=== PATIENT | female | born 1955 | race Caucasian/White ===

== ENCOUNTER 2023-06-25 07:48 | Emergency (ER) | payer OTHER, SELFPAY ==
[2023-06-25 07:54] VITALS: BP 129/70; BMI 24.5
[2023-06-25 08:07] LABS: % Basophils 0.4 % (0-2); % Eosinophils 1.1 % (0-6); % Immature Granulocytes 0.2 % (0-0.5); % Lymphocytes 40.4 % (20.5-51.1); % Monocytes 8.1 % (1.7-9.3); % Neutrophils 49.8 % (42.2-75.2); Absolute Eosinophils 0.1 10^3/uL (0-0.7); Absolute Lymphocytes 1.9 10^3/uL (1.2-3.4); Absolute Monocytes 0.4 10^3/uL (0.1-0.6); Absolute Neutrophils 2.3 10^3/uL (1.4-6.5); Hematocrit 39.9 % (37.0-47.0); Hemoglobin 13.3 g/dL (12.0-16.0); Mean Corp Hgb Conc. 33.3 g/dL (33.0-37.0); Mean Corpuscular Hgb 29.9 pg (27.0-31.0); Mean Corpuscular Volume 89.7 fL (81.0-99.0); Mean Platelet Volume 9.7 fL (7.4-10.4); Nucleated Red Blood Cells % 0 %; Platelet Count 200 10^3/uL (130-400); Red Blood Cell Count 4.45 10^6/uL (4.20-5.40); Red Cell Dist. Width 12.8 % (11.5-14.5); White Blood Cell Count 4.6 10^3/uL (4.8-10.8)
[2023-06-25 08:20] LABS: ALT (SGPT) 24 U/L (0-35); AST (SGOT) 31 U/L (14-36); Albumin 4.5 g/dl (3.5-5.0); Alkaline Phosphatase 52 U/L (38-126); Blood Urea Nitrogen 15 mg/dl (7-17); Calcium 9.4 mg/dl (8.4-10.2); Carbon Dioxide 28 mmol/L (22-30); Chloride 105 mmol/L (98-107); Estimated Creatinine Clearance 71 ml/min; Glucose 105 mg/dl (70-99); Sodium 136 mmol/L (135-145); Total Bilirubin 1.1 mg/dl (0.2-1.3); Total Protein 7.1 g/dl (6.3-8.2); eGFR > 60.00
[2023-06-25 08:30] LABS: Troponin I < 0.012 ng/ml
[2023-06-25 09:00] VITALS: BP 114/81
[2023-06-25 10:00] VITALS: BP 122/68
--- NOTE | 2023-06-25 10:22 | ED.GENMED ---
History of Present Illness
General
Chief Complaint: Chest Pain
Source: patient
Exam Limitations: none
Time Seen by Provider: 06/25/23 08:28
Nursing documentation reviewed up to this point in time: agreed with except (Triage note mentions some fluttering in her chest-denies to me)
Travel History
Have you had any contact with someone who has COVID-19?: No
Do you have any symptoms of coronavirus? Fever > 100 degrees, chills, cough, shortness of breath, sore throat, loss of taste or smell, muscle aches, or headache?: No
History of Present Illness
History of Present Illness:
68-year-old female with a history of hyperlipidemia presents to the emergency room for evaluation of chest pain. Patient reports symptoms have been intermittent since this morning that she says she woke up around 6 AM and she had discomfort in her
lower chest. She says she has had associated nausea. She says symptoms have been intermittent since onset. She says she has associated clamminess. She denies any vomiting. She says she was in her normal state of health last night although she
does note that her sister had recent CABG and for this reason patient has been very stressed recently. She denies any shortness of breath. She denies any recent illness including fever, cough, chills, URI symptoms. She denies having had similar
symptoms in the past. She denies any personal history of cardiac issues but says she has a family history both and her sister recently as above and also in her mother�she says mother had CABG in her 50s.
Review of Systems
Review of Systems
All Other Systems: ROS reviewed and negative except as documented in HPI and ROS
Constitutional: Denies fever or chills
EENT: Denies sore throat or runny nose
Respiratory: Denies cough or trouble breathing
Cardiac: Reports chest pain; Denies diaphoresis, palpitations or syncope
ABD/GI: Reports nausea; Denies abdominal pain, vomiting or diarrhea
: Denies flank pain
Musculoskeletal: Denies neck pain or back pain
Neurological: Denies headache, weakness or numbness
Phy Exam
Physical Exam
Physical Exam:
General: Awake, alert, oriented x3; no acute distress
Head: Normocephalic, atraumatic
Eyes: Conjunctiva normal, sclera anicteric
Throat: Airway intact, handling secretions
Neck: Trachea midline, supple without meningismus
Lungs: Clear to auscultation bilaterally, no wheezing, rales, rhonchi
Heart: Regular rate and rhythm, no murmurs, gallops, or rubs
Abd: Soft, non distended, nontender
Neuro: Cranial nerves grossly intact, speech fluid
Skin: no rash
Extremities: No edema in extremities, equal pulses in all extremities
Scores
Heart Failure Risk
Heart Failure Risk Score: Not Applicable
Heart Score for Chest Pain Patients
STEMI patient?: No
History: Slightly or Non-Suspicious
ECG: Normal
Age: >/= 65 years
Risk Factors: 1 or 2 Risk Factors
Troponin: </= Normal Limit
Heart Score for Chest Pain Patients: 3
Heart Score Risk: 2.5% MACE over next 6 weeks
Withdrawal Assessment of Alcohol
Withdrawal Assessment Completed?: Not applicable
Course
Orders/Labs/Results
Orders:
Orders
06/25/23 07:53
Electrocardiogram (*1) Urgent
Reason for Study: Chest Pain
EKG- Treatment ONCE
06/25/23 07:55
Complete Blood Count/With Diff Urgent
Comprehensive Metabolic Panel Urgent
Lipase Urgent
Comment: ADD ON
Troponin I Urgent
06/25/23 08:32
CR Chest - 2 Views Urgent
Comment:
Reason For Exam: chest pain
06/25/23 08:56
Add On- LAB Urgent
Tests Added?: lipase
06/25/23 11:06
Electrocardiogram (*1) Urgent
Reason for Study: Chest Pain
Other Reason for Exam: repeat
EKG- Treatment ONCE
06/25/23 11:26
Troponin I Urgent
Abnormal Lab Results
06/25/23
07:55
WBC 4.6 L 10^3/uL
(4.8-10.8)
Glucose 105 H mg/dl
(70-99)
06/25/23 07:55
06/25/23 07:55
Vital Signs
Initial and Last Documented VS:
Initial Vital Signs
Temp Pulse Resp BP Pulse Ox
36.8 C 70 16 129/70 99
06/25/23 07:54 06/25/23 07:54 06/25/23 07:54 06/25/23 07:54 06/25/23 07:54
Last Documented Vital Signs
Temp Pulse Resp BP Pulse Ox
36.8 C 72 13 125/75 99
06/25/23 07:54 06/25/23 13:17 06/25/23 10:00 06/25/23 13:17 06/25/23 10:00
MDM/Problems Addressed
Differential Diagnosis Includes:
GERD, costochondritis, pericarditis, ACS, anxiety, cholelithiasis; PE much less likely based on clinical presentation and in my judgment no further workup indicated for this diagnosis
MDM/Problems Addressed:
68-year-old female with history of hyperlipidemia and family history of cardiac disease presents for evaluation of chest pains. She says she has been under a lot of stress recently, sisters in the hospital after a CABG. This morning woke up and
was having some intermittent chest pains and waves of nausea and clamminess. Chest pain-free on my assessment. Vital signs normal. Exam as above. Plan to place an IV check labs including a CBC and a CMP, serial troponins. Will check chest x-ray
and EKG. Monitor closely reassess after the above.
Labs reviewed: CBC unremarkable, CMP no clinically significant abnormalities. Lipase normal. Troponin negative x 2. Chest x-ray reviewed by me no acute disease. No changes on serial EKGs. Patient chest pain-free on reassessment. She thinks
that her symptoms were related to stress. Nevertheless I did advise her that given her family history of cardiac disease she should follow-up with cardiology as an outpatient. She indicated understanding. Spoke about return precautions all
questions answered.
Chronic conditions affecting care:
Hyperlipidemia�higher risk for cardiac disease
*Radiology
Radiology exam reviewed: radiology read reviewed
*Pulse Oximetry
Patient hypoxic: no
*EKG
Interpreted by ED Provider?: Yes
Heart Rate: 72
Rate: normal
Rhythm: sinus
[place]: normal axis
Interval: normal interval
QRS Pattern: normal QRS
Ischemia: no ischemia
*Critical Care Note
Total Time (30-74mins, 75-104mins- exclusive of procedures): Not Applicable
Data Reviewed
Source: patient
ED Attending Note
-
Portions of this chart may have been created with voice recognition software.� Occasional wrong word or��sound alike� substitutions may have occurred due to the inherent limitations of voice recognition software.
Discharge Plan
Departure
Patient Disposition: Home (Routine Discharge)
Date of Disposition: 06/25/23
Time of Disposition: 13:02
Patient with high blood pressure during this ER visit?: No
Discharge Problem:
Chest pain
Instructions: Chest Pain CBC Follow Up
Prescriptions:
No Action
rosuvastatin 10 mg Tablet
10 mg PO HS
Theragen Tablet
1 tab PO HS
aspirin 81 mg Tablet,Delayed Release (Dr/Ec)
81 mg PO HS
acetaminophen [Tylenol Extra Strength] 500 mg Tablet
1,000 mg PO DAILYPRN PRN (Reason: mild pain)
coenzyme Q10 [CoQ-10] 100 mg Capsule
100 mg PO HS
acetylcarnitine 500 mg Capsule
1,000 mg PO DAILY
cholecalciferol (vitamin D3) 250 mcg (10,000 unit) Tablet
250 mcg PO DAILY
Fish Oil 350-600 mg Capsule
2 cap PO DAILY
CholestOff Complete 300-100 mg Capsule
1 cap PO TIDWMEAL
potassium citrate 99 mg Capsule
99 mg PO DAILY
calcium
2 tab PO DAILY
grape seed extract
250 mg PO DAILY
Referrals:
Aquiles Mao MD [Active] - Call in 1-3 days for appt
Activity Restrictions/Additional Instructions:
Thank you for visiting the Emergency Department at [facility].
1. Please schedule a follow up appointment as directed. Call first thing tomorrow morning to make an appointment.
2. If indicated, please take your medications as instructed and indicated on discharge paperwork.
3. If any of your symptoms do not improve, or persist, or become more severe within 6-12 hours, please return to the emergency department for further care.
4. Please return to the emergency department if you develop a headache, neck pain/stiffness, fever greater than 100.4F, chest pain, shortness of breath, persistent nausea, vomiting, slurred speech, difficulty walking, numbness/tingling, weakness,
signs of infection or any other symptoms that are worrisome to you.
Please call [phone] if you have any questions.
Interventions
Interventions:
*Risk Screen - Suicide Last Done: 06/25/23 07:54
*General Assessment Last Done: 06/25/23 07:54
*Neglect/Abuse Screening Last Done: 06/25/23 07:54
ED- Fall Risk Assessment Last Done: 06/25/23 07:54
*ED COVID-19 Vaccine History Last Done: 06/25/23 07:54
*Nursing Disposition Last Done: 06/25/23 13:17
ED- Cardiac Assessment Last Done: 06/25/23 07:54
Discharge Date and Time
Discharge Date/Time: 06/25/23 13:18
[2023-06-25 11:07] LABS: Lipase 172 U/L (23-300)
[2023-06-25 12:03] LABS: Troponin I < 0.012 ng/ml
[2023-06-25 13:15] VITALS: BP 125/75
[2023-06-25 13:17] VITALS: BP 125/75
== END 2023-06-25 13:18 | disposition home or self-care (01) ==
LOC: EMR 07:48
PROVIDERS: EMERGENCY PHYSICIAN Emergency Medicine
DX: R07.89 Other chest pain (principal); E78.5 Hyperlipidemia, unspecified; Z82.49 Family history of ischemic heart disease and other diseases of the circulatory system
CPT/HCPCS: 99283; 71046; 80053; 83690; 84484; 85025; 93005